=== PATIENT | male | born 1985 | race Caucasian/White ===

== ENCOUNTER 2024-07-02 17:18 | Emergency (ER) | payer SELFPAY ==
[2024-07-02] MEDS: Take Home: Cephalexin 500 MG Cap, 6 Cap Pack PO ONE (18:00)
== END 2024-07-02 18:03 | disposition home or self-care (01) ==
LOC: DL.ED 17:18
DX: L03.114 Cellulitis of left upper limb (principal); F15.10 Other stimulant abuse, uncomplicated
CPT/HCPCS: 99283; A9270